=== PATIENT | female | born 1955 | race Caucasian/White ===

== ENCOUNTER 2021-07-09 11:10 | Emergency (ER) | payer MEDICARE, BC ==
[2021-07-09 12:06] LABS: HEMOGLOBIN 10.5 gm/dl (12.3-15.3); RED BLOOD COUNT 3.25 M/UL (4.00-5.10); WHITE BLOOD COUNT 4.9 K/UL (4.5-11.0)
[2021-07-09] MEDS ORDERED: PROAIR HFA8.5 GM INH (21:12)
== END 2021-07-09 21:20 | disposition home or self-care (01) ==
LOC: ER1 11:10
PROVIDERS: Emergency Medicine
DX: R07.89 Other chest pain (principal); E86.0 Dehydration; R06.02 Shortness of breath; E78.5 Hyperlipidemia, unspecified; I10 Essential (primary) hypertension; E03.9 Hypothyroidism, unspecified; Z90.710 Acquired absence of both cervix and uterus; Z79.82 Long term (current) use of aspirin
CPT/HCPCS: 36600; 70450; 71045; 80053; 82550; 82553; 82803; 83874; 83880; 84484; 85025; 85379; 85610; 85730; 99285; Q9967

== ENCOUNTER → 2021-09-19 | Outpatient (CLI) | payer MEDICARE, BC ==
[~2021-09-19] MED LIST: PROAIR HFA8.5 GM INH
== END ==
LOC: CATH 09-04 10:00 → EDSTATUS 10:00 → CATH 10:00
DX: I95.1 Orthostatic hypotension (principal)